=== PATIENT | female | born 1960 | race Caucasian/White ===

== ENCOUNTER 2023-11-09 23:07 | Emergency (ER) | payer MEDICARE, SELFPAY ==
[2023-11-09 23:14] VITALS: BP 130/77; PULSE 76; TEMP 37; O2SAT 99; BMI 52.1
--- NOTE | 2023-11-09 23:38 | ED.FEMALEGU1 ---
HPI - Female Genitourinary General Chief complaint: Urogenital-Female Stated complaint: Hematuria Time Seen by Provider: 11/09/23 23:32 Source: patient Mode of arrival: walk-in Limitations: no limitations History of Present Illness HPI Narrative: patient presents complaining of vaginal bleeding . Started a couple of nights ago. felt there was more bleeding tonight and came in. No light headiness or urinary symptoms. no abdominal pain or nausea Related Data Allergies Allergy/AdvReac Type Severity Reaction Status Date / Time No Known Drug Allergies Allergy Verified 11/09/23 23:23 Review of Systems ROS Status of ROS 10 or more systems reviewed and unremarkable except as noted in history and below Exam Constitutional Vital Signs, click to edit/add: Last Vital Signs Temp 98.6 F 11/09/23 23:14 Pulse 76 11/09/23 23:14 Resp 20 11/09/23 23:14 BP 130/77 11/09/23 23:14 Pulse Ox 99 11/09/23 23:14 O2 Del Method Nasal Cannula 11/09/23 23:14 O2 Flow Rate 2 11/09/23 23:14 Common normals: no apparent distress, average body habitus, oriented x3, no limitations, healthy appearing, alert and well nourished [facility] Common normals: normocephalic and head/scalp atraumatic Eye Common normals: PERRL, EOMs intact bilaterally and conjunctivae normal Respiratory Common normals: normal respiratory effort, no retractions, no use of accessory muscles and clear to auscultation bilaterally Cardio Common normals: regular rate, regular rhythm, S1 normal heart sound and S2 normal heart sound GI Common normals: Normal to inspection, nondistended, normoactive bowel sounds present, soft to palpation and non-tender Other: speculum exam with blood clot noted within the vault. No active bleeding Extremity Common normals: normal to inspection and full ROM Neuro Common normals: oriented x3, CN's II-XII intact bilaterally, moves all extremities and no focal motor deficits Psych Appearance: grossly normal Course Vital Signs Vital signs: Vital Signs Temperature 98.6 F 11/09/23 23:14 Pulse Rate 76 11/09/23 23:14 Respiratory Rate 20 11/09/23 23:14 Blood Pressure 130/77 11/09/23 23:14 Pulse Oximetry 99 11/09/23 23:14 Oxygen Delivery Method Nasal Cannula 11/09/23 23:14 Oxygen Delivery Flow Rate 2 11/09/23 23:14 Temperature 98.6 F 11/09/23 23:14 Pulse Rate 76 11/09/23 23:14 Respiratory Rate 20 11/09/23 23:14 Blood Pressure 130/77 11/09/23 23:14 Pulse Oximetry 99 11/09/23 23:14 Oxygen Delivery Method Nasal Cannula 11/09/23 23:14 Oxygen Delivery Flow Rate 2 11/09/23 23:14 MDM - Female Genitourinary MDM Narrative Medical decision making narrative: patient presents with vaginal bleeding. VVS and H/H WNL. 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 Lab Data Labs: Lab Results 11/09/23 Range/Units 23:53 WBC 7.1 (4.0-11.0) 10^3/uL RBC 4.54 (4.20-5.40) 10^6/uL Hgb 13.4 (12.0-16.0) g/dL Hct 44.2 (36.0-48.0) % MCV 97.4 (81.0-99.0) fL MCH 29.5 (26.7-34.0) pg MCHC 30.3 (29.9-35.2) g/dL RDW 12.5 (11.0-15.0) % Plt Count 200 (150-450) 10^3/uL MPV 9.3 L (9.5-13.5) fL Neut % (Auto) 51.9 (43.0-75.0) % Lymph % (Auto) 34.5 (20.5-60.0) % [place] % (Auto) 12.5 H (1.7-12.0) % Eos % (Auto) 0.0 L (0.9-7.0) % Baso % (Auto) 1.0 (0.2-2.0) % Neut # (Auto) 3.7 (1.4-6.5) 10^3/uL Lymph # (Auto) 2.4 (1.2-3.8) 10^3/uL [place] # (Auto) 0.9 H (0.3-0.8) 10^3/uL Eos # (Auto) 0.0 (0.0-0.7) 10^3/uL Baso # (Auto) 0.1 (0.0-0.1) 10^3/uL Abs Immat Gran (auto) 0.01 (0.00-0.03) 10^3/uL Imm/Tot Granulo (auto) 0.1 (0.0-0.5) % Sodium 140 (136-145) mmol/L Potassium 4.0 (3.5-5.1) mmol/L Chloride 101 (98-107) mmol/L Carbon Dioxide 34.1 H (21.0-32.0) mmol/L Anion Gap 8.9 BUN 18.0 (7.0-18.0) mg/dL Creatinine 0.47 L (0.55-1.02) mg/dL Est GFR ( Amer) >60 (>=60) Est GFR (Non-Af Amer) >60 (>=60) BUN/Creatinine Ratio 38.3 Glucose 132 H (74-106) mg/dL Calcium 9.4 (8.5-10.1) mg/dL Serum HCG, Qual Negative (NEGATIVE) Discharge Plan Discharge Stand Alone Forms: Portal Instructions Chief Complaint: Urogenital-Female Clinical Impression: Abnormal vaginal bleeding Patient Disposition: Home, Self-Care Print Language: Moroccan Instructions: Dysmenorrhea (ED) Referrals: Physician,Non-Staff, [Physician] - 1 week
[2023-11-09 23:59] LABS: Basophils Absolute Auto 0.1 10^3/uL (0.0-0.1); Hematocrit 44.2 % (36.0-48.0); Hemoglobin 13.4 g/dL (12.0-16.0); Immature Granulocytes Abs Auto 0.01 10^3/uL (0.00-0.03); Immature Granulocytes Pct Auto 0.1 % (0.0-0.5); Lymphocytes Absolute Auto 2.4 10^3/uL (1.2-3.8); Lymphocytes Percent Auto 34.5 % (20.5-60.0); Mean Corpuscular HGB Conc 30.3 g/dL (29.9-35.2); Mean Corpuscular Hemoglobin 29.5 pg (26.7-34.0); Mean Corpuscular Volume 97.4 fL (81.0-99.0); Mean Platelet Volume 9.3 fL (9.5-13.5); Monocytes Absolute Auto 0.9 10^3/uL (0.3-0.8); Monocytes Percent Auto 12.5 % (1.7-12.0); Neutrophils Absolute Auto 3.7 10^3/uL (1.4-6.5); Neutrophils Percent Auto 51.9 % (43.0-75.0); Platelet Count 200 10^3/uL (150-450); Red Blood Count 4.54 10^6/uL (4.20-5.40); Red Cell Distribution Width 12.5 % (11.0-15.0); White Blood Count 7.1 10^3/uL (4.0-11.0)
[2023-11-10 00:12] LABS: Anion Gap 8.9; BUN Creatinine Ratio 38.3; Calcium 9.4 mg/dL (8.5-10.1); Carbon Dioxide 34.1 mmol/L (21.0-32.0); Chloride 101 mmol/L (98-107); Estimated GFR (African America >60 (>=60); Estimated GFR (Non-African Ame >60 (>=60); Glucose 132 mg/dL (74-106); Sodium 140 mmol/L (136-145)
[2023-11-10 00:25] LABS: HCG Qualitative NEGATIVE (NEGATIVE)
[2023-11-10 01:07] VITALS: BP 135/72; PULSE 75; O2SAT 99
== END 2023-11-10 01:08 | disposition home or self-care (01) ==
PROVIDERS: Emergency Provider Internal Medicine; PCP Internal Medicine
DX: N93.9 Abnormal uterine and vaginal bleeding, unspecified (principal)
CPT/HCPCS: 36415; 80048; 84703; 85025; 99283